=== PATIENT | male | born 1980 | race Caucasian/White ===

== ENCOUNTER → 2024-10-19 | Outpatient (CLI) | payer OTHER ==
--- NOTE | 2024-10-19 09:57 | US ---
EXAMINATION TYPE: US groin RT DATE OF EXAM: 10/19/2024 COMPARISON: 06/14/2022. CLINICAL INDICATION: Male, 43 years old with history of R10.31 RLQ PAIN; bulge within RLQ for awhile now, at work injury, pain in RLQ TECHNIQUE: RLQ soft tissue scan FINDINGS: Obvious hernia seen that increases in size with valsalva. Peristalsing seen within, maybe bowel containing. IMPRESSION: Hernia in the area of concern in the right lower quadrant consider CT for further evalua tion of this hernia. No herniated definitively visualized on prior to CT 06/14/2022. [facility], , 10/19/2024 9:55 AM
== END | disposition home or self-care (01) ==
LOC: RADUSWWP 09:07
PROVIDERS: ATTEND Family Medicine
DX: K46.9 Unspecified abdominal hernia without obstruction or gangrene (principal)